=== PATIENT | male | born 1955 | race African-American/Black ===

== ENCOUNTER 2023-06-25 04:11 | Day surgery (SDC) | payer OTHER ==
[2023-06-19 15:23] VITALS: BMI 27.0
[2023-06-25 08:10] VITALS: RESP 20
[2023-06-25] MEDS ORDERED: ONDANSETRON 4 MG/2 ML VIAL ONE (09:46)
[2023-06-25] MEDS ORDERED: MIDAZOLAM HCL 2 MG/2 ML SINGLE DOSE VIAL ONE (09:46)
[2023-06-25 16:05] VITALS: BP 138/71; PULSE 68; TEMP 97.5
== END 2023-06-25 11:58 | disposition home or self-care (01) ==
LOC: JASU-SURG 04:11
PROVIDERS: ATTEND Urology
PROC: 0TF3XZZ Fragmentation in Right Kidney Pelvis, External Approach (ICD-10-PCS; principal; 2023-06-25 09:30)
DX: N20.0 Calculus of kidney (principal)